=== PATIENT | male | born 1960 | race Caucasian/White ===

== ENCOUNTER 2020-10-27 11:16 | Inpatient (IN) | payer MEDICARE ==
[2020-10-27 12:31] LABS: BILIRUBIN NEGATIVE (NEGATIVE); BLOOD 1+ Ery/uL (NEGATIVE); COLOR YELLOW (YELLOW); GLUCOSE (U) TRACE mg/dL (NORMAL); LEUKOCYTES NEGATIVE Leu/uL (NEGATIVE); NITRITE NEGATIVE (NEGATIVE); PROTEIN 1+ mg/dL (NEGATIVE); SPECIFIC GRAVITY >=1.030 (1.001-1.030); UROBILINOGEN 0.2 mg/dL (0.2-1.0); pH 5.5 (5.0-9.0)
[2020-10-27 12:38] LABS: CLARITY SLIGHTLY HAZY (CLEAR)
[2020-10-27 12:52] LABS: BASOPHIL 0.2 % (0-2); EOSINOPHIL 0.1 % (0-5); HCT 49.6 % (42.0-52.0); HGB 16.7 g/dl (13.2-18.0); LYMPHOCYTE 3.1 % (15-48); MCH 30.8 pg (25.0-31.0); MCHC 33.7 g/dL (32.0-36.0); MCV 91.3 fL (78.0-100.0); MONOCYTE 3.2 % (0-12); NRBC 0; PLT 249 K/uL (150-400); RBC 5.43 M/uL (4.70-6.00); RDW 12.6 % (11.5-14.0); WBC 16.1 K/uL (4.0-10.5)
[2020-10-27 13:01] LABS: ALBUMIN 3.8 g/dL (3.4-5.0); BILIRUBIN - TOTAL 1.5 mg/dL (0.2-1.0); BUN/CREAT RATIO (CALC) 31.2 RATIO; CREATININE 0.93 mg/dL (0.67-1.17); GLOBULIN (CALCULATION) 4.2 g/dL; POTASSIUM 4.1 mmol/L (3.5-5.1)
[2020-10-27 13:08] LABS: BACTERIA TRACE
[2020-10-27 13:21] LABS: LACTIC ACID 2.2 mmol/L (0.4-1.9)
--- NOTE | 2020-10-27 19:18 | NUR ---
DISCHARGE INSTRUCTION GIVEN TO PATIENT, VERBALIZED UNDERSTANDING. IV DCD. JO NOTIFIED OF PATIENT DISCHARGE. FAMILY MET AT ER DOOR
[2020-10-28 06:29] LABS: BASOPHIL 0.4 % (0-2); EOSINOPHIL 0.8 % (0-5); HCT 42.6 % (42.0-52.0); HGB 13.9 g/dl (13.2-18.0); LYMPHOCYTE 9.4 % (15-48); MCH 30.5 pg (25.0-31.0); MCHC 32.6 g/dL (32.0-36.0); MCV 93.6 fL (78.0-100.0); NRBC 0; PLT 220 K/uL (150-400); RBC 4.55 M/uL (4.70-6.00); RDW 12.9 % (11.5-14.0); WBC 10.8 K/uL (4.0-10.5)
[2020-10-28 06:57] LABS: BILIRUBIN - TOTAL 1.5 mg/dL (0.2-1.0); BUN/CREAT RATIO (CALC) 30.7 RATIO; CREATININE 1.14 mg/dL (0.67-1.17); POTASSIUM 4.1 mmol/L (3.5-5.1)
--- NOTE | 2020-10-28 16:58 | NUR ---
REPORTS HE LIVES WITH SPOUSE AND HE IS INDEPENDENT WITH ADL'S PLEASE ADVISE OF ANY DISCHARGE NEEDS
--- NOTE | 2020-10-29 14:15 | NUR ---
PER DR AMOR, ADVANCED NG ABOUT 2 INCHES, PLACED BACK ON INTERMITTION SUCTION.
[2020-10-30 07:06] LABS: BASOPHIL 0.2 % (0-2); EOSINOPHIL 0.9 % (0-5); HCT 38.2 % (42.0-52.0); HGB 12.5 g/dl (13.2-18.0); LYMPHOCYTE 14.3 % (15-48); MCH 30.3 pg (25.0-31.0); MCHC 32.7 g/dL (32.0-36.0); MCV 92.7 fL (78.0-100.0); MONOCYTE 8.7 % (0-12); MPV 11.1 fL (6.0-9.5); NEUTROPHIL 75.3 % (41-80); NRBC 0; PLT 194 K/uL (150-400); RBC 4.12 M/uL (4.70-6.00); RDW 12.2 % (11.5-14.0); WBC 8.1 K/uL (4.0-10.5)
[2020-10-30 07:30] LABS: BUN/CREAT RATIO (CALC) 30.2 RATIO; CREATININE 0.86 mg/dL (0.67-1.17); POTASSIUM 3.6 mmol/L (3.5-5.1)
--- NOTE | 2020-10-30 11:31 | NUR ---
PER VERBAL ORDER FROM DR AMOR, NG TUBE REMOVED. PATIENT TOLERATED PROCEDURE WELL WITH MINIMAL GAGGING. PATIENT'S NURSE NOTIFIED OF REMOVAL OF NG TUBE
[2020-10-31 05:55] LABS: BASOPHIL 0.5 % (0-2); EOSINOPHIL 1.2 % (0-5); HCT 38.1 % (42.0-52.0); HGB 12.9 g/dl (13.2-18.0); LYMPHOCYTE 12.1 % (15-48); MCH 30.4 pg (25.0-31.0); MCHC 33.9 g/dL (32.0-36.0); MCV 89.9 fL (78.0-100.0); MONOCYTE 8.5 % (0-12); NEUTROPHIL 77.2 % (41-80); NRBC 0; PLT 195 K/uL (150-400); RBC 4.24 M/uL (4.70-6.00); WBC 8.9 K/uL (4.0-10.5)
[2020-10-31 06:06] LABS: BUN/CREAT RATIO (CALC) 16.5 RATIO; CREATININE 0.97 mg/dL (0.67-1.17); POTASSIUM 3.6 mmol/L (3.5-5.1)
== END 2020-10-31 17:06 | disposition home or self-care (01) | DRG 390 ==
LOC: FER 11:16 → FMS 14:55
PROVIDERS: Emergency Medicine; ADMIT Internal Medicine
DX: K56.600 Partial intestinal obstruction, unspecified as to cause (principal); Z20.822 Contact with and (suspected) exposure to COVID-19; I10 Essential (primary) hypertension; Z98.890 Other specified postprocedural states; Z88.1 Allergy status to other antibiotic agents
CPT/HCPCS: 36415; 74018; 74019; 74022; 74250; 77002; 80048; 80053; 81001; 83605; 83690; 85025; 93005; 94010; C9113; J1170; J2270; J2405; J2543; J2550; J7030; Q9967; U0002